=== PATIENT | female | born 1970 | race Caucasian/White ===

== ENCOUNTER 2016-09-08 18:19 | Emergency (ER) | payer OTHER ==
[2016-09-08 18:27] VITALS: BP 116/47; PULSE 78; TEMP 98.2; BMI 35.4
--- NOTE | 2016-09-08 18:45 | PDOC ---
Attending Attestation - Resident Resident Name: Khalida Dsouza - ED Attending Attestation I have performed the following: I have examined & evaluated the patient, The case was reviewed & discussed with the resident, I agree w/resident's findings & plan, Exceptions are as noted - HPI HPI: 09/08/16 18:43 The patient is a 46 year old female with no significant past medical history with lateral ankle pain after an inversion injury to her right ankle. - Physicial Exam PE: 09/08/16 18:43 Mild tenderness over lateral ankle, without discreet bony tenderness - Medical Decision Making 09/08/16 18:44 She is well appearing and in no acute distress X-ray emergency Department interpretation: No acute traumatic injury noted Clinical impression: Talofibular ligament sprain I discussed the physical exam findings, ancillary test results and final diagnoses with the patient. I answered all of the patient's questions. The patient was satisfied with the care received and felt comfortable with the discharge plan and treatment plan. The patient will call their primary care physician within 24 hours to arrange follow-up and will return to the Emergency Department with any new, persistent or worsening symptoms. Discharge Disposition - Diagnosis Sprain of ankle - Discharge Dispostion Disposition: HOME Condition at time of disposition: Stable Last Admission D/C Date: 10/19/90 - Referrals Referrals: Igor Ma MD [Staff Physician] - 3 days - Patient Instructions Printed Discharge Instructions: DI for Ankle Sprain Additional Instructions: Return to the emergency department immediately with ANY new, persistent or worsening symptoms. You MUST call and follow up with your doctor tomorrow. Please make sure your doctor reviews the results of your emergency department evaluation.
--- NOTE | 2016-09-08 18:46 | PDOC ---
History of Present Illness - General Chief Complaint: Pain, Acute Stated Complaint: right ankle pain Time Seen by Provider: 09/08/16 18:24 History Source: Patient Exam Limitations: No Limitations - History of Present Illness Initial Comments: 09/08/16 18:46 46 year old female presents to the ED with complaints of "right ankle pain after I twisted my ankle". A/c to the patient, she was trying to take her child out of the van, walked 4 steps and accidently stepped in a hole, twisted her ankle. Patient reports to have throbbing pain, non radiating and came to the ED immediately. Denies chest pain, sob, cough, palpitations, abdominal pain, nausea or vomiting. Patient had her tooth removed 2 weeks ago, took full course of amoxicillin given the h/o rheumatic fever. Denies fever, chills, rigors or sweating. Past Medical Hx: Rheumatic fever, Anemia. Allergies: NKDA Surgical Hx: Gastric by pass 12 yrs ago, wisdom tooth extraction Hospitalization: Never been hospitalized Social Hx: Never smoked, no alcohol, no illicit drug use Family Hx: Unknown Past History - Past Medical History Anemia: Yes - Surgical History Gastric Stapling: Yes - Psycho/Social/Smoking Cessation Hx Anxiety: No Suicidal Ideation: No Smoking History: Never smoked Hx Alcohol Use: No Drug/Substance Use Hx: No Substance Use Type: None Review of Systems - Review of Systems Able to Perform ROS?: Yes Comments:: 09/08/16 18:59 CONSTITUTIONAL: Absent: fever, chills, diaphoresis, generalized weakness, malaise, loss of appetite HEENT: Absent: rhinorrhea, nasal congestion, throat pain, throat swelling, difficulty swallowing, mouth swelling, ear pain, eye pain, visual Changes CARDIOVASCULAR: Absent: chest pain, syncope, palpitations, irregular heart rate, lightheadedness , peripheral edema RESPIRATORY: Absent: cough, shortness of breath, dyspnea with exertion, orthopnea, wheezing, stridor, hemoptysis GASTROINTESTINAL: Absent: abdominal pain, abdominal distension, nausea, vomiting, diarrhea, constipation, melena, hematochezia GENITOURINARY: Absent: dysuria, frequency, urgency, hesitancy, hematuria, flank pain, genital pain MUSCULOSKELETAL: Present: Right ankle pain Absent: myalgia, arthralgia, joint swelling SKIN: Absent: rash, itching, pallor HEMATOLOGIC/IMMUNOLOGIC: Absent: easy bleeding, easy bruising, lymphadenopathy, frequent infections ENDOCRINE: Absent: unexplained weight gain, unexplained weight loss, heat intolerance, cold intolerance NEUROLOGIC: Absent: headache, focal weakness or paresthesias, dizziness, unsteady gait, seizure, mental status changes, bladder or bowel incontinence PSYCHIATRIC: Absent: anxiety, depression, suicidal or homicidal ideation, hallucinations. Is the patient limited [place] proficient: No *Physical Exam - Vital Signs Last Vital Signs Temp Pulse Resp BP Pulse Ox 98.2 F 78 16 116/47 100 09/08/16 18:19 09/08/16 18:19 09/08/16 18:19 09/08/16 18:19 09/08/16 18:19 - Physical Exam Comments: 09/08/16 19:06 PE: GENERAL: Awake, alert, and fully oriented, in no acute distress HEAD: No signs of trauma EYES: PERRLA, EOMI, sclera anicteric, conjunctiva clear ENT: Auricles normal inspection, hearing grossly normal, nares patent, oropharynx clear without exudates. Moist mucosa NECK: Normal ROM, supple, no lymphadenopathy, JVD, or masses LUNGS: Breath sounds equal, clear to auscultation bilaterally. No wheezes, and no crackles.. HEART: Regular rate and rhythm, normal S1 and S2, no murmurs, rubs or gallops ABDOMEN: Soft, nontender, normoactive bowel sounds. No guarding, no rebound. No masses EXTREMITIES: Right extremity: Slight swelling over the ankle, no bony prominences, tenderness on inversion/eversion. Left extermity:Normal range of motion, no edema. No clubbing or cyanosis. No cords, erythema, or tenderness NEUROLOGICAL: Cranial nerves II through XII grossly intact. Normal speech, normal gait SKIN: Warm, Dry, normal turgor, no rashes or lesions noted. Medical Decision Making - Medical Decision Making 09/08/16 19:07 Patient seen and examined at bed side. Looks comfortable. Vitals unremarkable. Physical examination reveals :Right extremity: Slight swelling over the ankle, no bony prominences, tenderness on inversion/eversion. Ordered x-ray of right ankle Patient reassessed. On the basis of history and physical examination, symptoms are more consistent with ankle sprain, most likely talofibular ligament sprain. Xray of ankle negative for fracture. Patient is hemodynamically stable. She can be discharged. Patient has been advised to use ice packs, to take motrin for pain. Illness, Investigation and Plan of care explained to the patient. She verbalized understanding. Case seen and discussed with Dr. Mckeon. 09/08/16 19:10 *DC/Admit/Observation/Transfer Diagnosis at time of Disposition: Ankle sprain - Discharge Dispostion Disposition: HOME Condition at time of disposition: Stable - Referrals Referrals: Igor Ma MD [Staff Physician] - 3 days - Patient Instructions Printed Discharge Instructions: DI for Ankle Sprain Additional Instructions: Return to the emergency department immediately with ANY new, persistent or worsening symptoms. You MUST call and follow up with your doctor tomorrow. Please make sure your doctor reviews the results of your emergency department evaluation. - Post Discharge Activity
== END 2016-09-08 19:06 | disposition home or self-care (01) ==
LOC: FER 18:19
DX: S93.401A Sprain of unspecified ligament of right ankle, initial encounter (principal); X50.9XXA Other and unspecified overexertion or strenuous movements or postures, initial encounter; Y93.01 Activity, walking, marching and hiking; Y92.89 Other specified places as the place of occurrence of the external cause
CPT/HCPCS: 73610-TC-RT; 73630-TC-RT; 99283-25